=== PATIENT | female | born 1975 | race Caucasian/White ===

== ENCOUNTER 2016-05-01 09:49 | Emergency (ER) | payer OTHER ==
[2016-05-01 09:58] VITALS: BP 132/76
--- NOTE | 2016-05-01 10:37 | PROVIDER DOCUMENTATION ---
HPI-EENT General - General Chief Complaint: Cold Symptoms Stated Complaint: COUGHING,CONGESTED,SULLIVAN,CANT BREATHE,CHILLS Time Seen by Provider: 05/01/16 10:08 Source: patient Allergies/Adverse Reactions: Patient Allergies Allergy/AdvReac Type Severity Reaction Status Date / Time adhesive Allergy Severe RASH Verified 05/01/16 10:11 Home Medications: Home Medication List Medication Instructions Recorded Confirmed Last Taken Type Furosemide [Lasix] 80 mg PO BID 09/28/13 05/01/16 04/30/16 History Lurasidone [Latuda] 40 mg PO QHS 05/09/15 05/01/16 04/30/16 History Gabapentin 400 mg PO BID 11/04/15 05/01/16 04/30/16 History Amoxicillin/Pot Clavulanate 875 mg PO Q12HR #14 tablet 05/01/16 Unknown Rx [Augmentin] Loratadine/Pse E.r. 24 Hr 1 each PO DAILY #20 tablet 05/01/16 Unknown Rx [Claritin-D 24 Hr] Methylprednisolone [Medrol Dosepak] 4 mg PO DIRECTED #1 package 05/01/16 Unknown Rx - History of Present Illness-EENT General Nature of Presenting Problem: Pt is a 40 y/o F c chief complaint of rhinorrhea, sinus congestion x 5 days c low grade fever. Pt denies any cough, chest pain, or SOB. 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 On arrival, pt is in no distress. Review of Systems - Adult - REVIEW OF SYSTEMS - ADULT Constitutional: reports: no symptoms reported. denies: chills, fatique Eyes: reports: no symptoms reported. denies: blurred vision, double vision Ears, Nose, Mouth & Throat: reports: no symptoms reported. denies: ear pain, nose pain, throat pain Cardiovascular: reports: no symptoms reported. denies: chest pain, orthopnea Respiratory: reports: no symptoms reported. denies: cough, shortness of breath Gastrointestinal: reports: no symptoms reported. denies: abdominal pain, nausea Genitourinary: reports: no symptoms reported. denies: dysuria, hematuria Musculoskeletal: reports: no symptoms reported. denies: bone pain, joint pain, joint swelling Integumentary: reports: no symptoms reported. denies: hives, itching, rash Neurological: reports: no symptoms reported. denies: numbness, paresthesia Psychiatric: reports: no symptoms reported. denies: anxiety, emotional problems Endocrine: reports: no symptoms reported. denies: cold intolerance, heat intolerance Hematologic/Lymphatic: reports: no symptoms reported. denies: blood clots, low blood count Allergic/Immunologic: reports: no symptoms reported. denies: allergic reactions , food allergy All Other Systems: Reviewed and Negative Past History - Adult - PAST MEDICAL HISTORY-ADULT Review of Records: reports: Old Records Reviewed, Nursing Assessment Review, Medications Reviewed, Social history reviewed & non-contributory. Major Childhood Illnesses: reports: denies history Cardiovascular: reports: murmur Respiratory: reports: asthma Gastrointestinal: reports: GERD Obstetrical/Gynecological: reports: denies history Genitourinary: reports: denies history Musculoskeletal: reports: chronic pain Neurological: reports: denies history Psychiatric: reports: anxiety, bipolar, depression, psychiatric problems, ptsd Endocrine/Immune: reports: denies history Other Conditions: reports: denies history Additional History: seasonal allergies - PRIOR SURGERIES/PROCEDURES Surgical/Procedure History: reports: cholecystectomy, BTL, back/neck (back x 2/ neck x 1), other (heart sx as child) - PRIOR HOSPITALIZATIONS Prior Hospitalizations: reports: none - IMMUNIZATION STATUS Childhood Immunizations: See Nurse Assessment Flu Vaccine: See Nurse Assessment - FAMILY HISTORY Family History: reviewed, not pertinent - SOCIAL HISTORY Smoking: denies Substance Use: none/never Alcohol Use Frequency: never Living Situation: family Physical Exam- EENT - Physical Exam EENT Initial Vital Signs Reviewed: Yes General Appearance: appears well, alert, no apparent distress Eye Exam: bilateral eye: normal inspection, PERRL, EOMI Ear Exam: bilateral ear: auricle normal, canal normal, TM normal Nasal Exam: sinus tenderness (frontal) Throat Exam: pharynx normal Neck: non-tender, full range of motion, supple, normal inspection Respiratory: chest non-tender, lungs clear, normal breath sounds Cardiovascular: normal peripheral pulses, regular rate, rhythm, no edema Abdominal Exam: normal bowel sounds, non tender, soft Lymphatic: no adenopathy Back Exam: normal inspection, no CVA tenderness, no vertebral tenderness Extremity: normal range of motion, non-tender, normal gait Integumentary: normal color, normal turgor, warm/dry Neurologic: grossly normal, no motor/sensory deficits Psych/Mental Status: normal mood/affect, normal thought content, normal thought process, oriented x 3 Progress - PLAN OF CARE/RESULTS Progress/Plan/Lab Results: Orders Category Date Time Status Flu Swab [INFLUENZA SCREEN A/B] Stat Lab 05/01/16 10:00 Completed Vital Signs - 24 hr 05/01/16 09:55 Temperature 97.9 F Pulse Rate 94 H Respiratory 18 Rate Blood Pressure 132/76 O2 Sat by Pulse 100 Oximetry Departure - Departure Time of Disposition Order: 10:36 DIAGNOSIS: Sinusitis Qualifiers: Sinusitis location: frontal Chronicity: acute Recurrence: non-recurrent Qualified Code(s): J01.10 - Acute frontal sinusitis, unspecified Disposition: HOME 01 Certified Medical Emergency: Emergent Condition: Stable Additional Instructions: ED Follow Up Instructions: You have been treated by a care provider in the Emergency Department. These instructions are being provided to you so you can have an understanding of how to care for yourself upon discharge. Upon discharge from the Emergency Department, you are responsible for making arrangements for follow-up care by a physician of your choice. Take all prescribed medications as directed. Return to the Emergency Department immediately for any new or worsening symptoms. You may call the Physician Referral phone number at [phone] to obtain a list of Physicians who are taking new patients. Prescriptions: Amoxicillin/Pot Clavulanate [Augmentin] 875 mg PO Q12HR #14 tablet Loratadine/Pse E.r. 24 Hr [Claritin-D 24 Hr] 1 each PO DAILY #20 tablet Methylprednisolone [Medrol Dosepak] 4 mg PO DIRECTED #1 package Referrals: Momo Cade [Primary Care Provider] - Jade Lewis MD [STAFF PHYSICIAN] - Forms: Return to School/Parent Work Instructions: Sinusitis, [id number] Attestation - Physician/ SNEHAL Attestation Patient care was provided by Advanced Practice Provider:: Yes Advanced Practice Provider:: Zeferino Bourne Advanced Practice Provider documentation review:: The Mid-level provider documentation, treatment plan and medical decision making was reviewed by the physician who agrees with all treatment and medical decision making by the [facility].
== END 2016-05-01 11:31 | disposition home or self-care (01) ==
LOC: ED 09:49
DX: J01.10 Acute frontal sinusitis, unspecified (principal); R09.81 Nasal congestion; R51 Headache; J34.89 Other specified disorders of nose and nasal sinuses; R50.9 Fever, unspecified; G89.29 Other chronic pain; F41.9 Anxiety disorder, unspecified; F32.9 Major depressive disorder, single episode, unspecified; Z79.899 Other long term (current) drug therapy; F31.9 Bipolar disorder, unspecified
CPT/HCPCS: 87804; 99283